=== PATIENT | female | born 1965 | race Hispanic/Latino ===

== ENCOUNTER 2017-02-22 05:51 | Emergency (ER) | payer MEDICAID ==
[2017-02-22 06:11] VITALS: BP 151/78
[2017-02-22] MEDS ORDERED: DIPHTH,PERTUSS(ACELL),TET VAC 0.5 ML VIAL IM ONE (06:26)
[2017-02-22] MEDS ORDERED: KETOROLAC TROMETHAMINE 60 MG/2 ML VIAL IM ONE (06:26)
[2017-02-22] MEDS: DIPHTH,PERTUSS(ACELL),TET VAC 0.5 ML VIAL IM ONE (06:29)
[2017-02-22] MEDS: KETOROLAC TROMETHAMINE 60 MG/2 ML VIAL IM ONE (06:30)
--- NOTE | 2017-02-22 06:37 | ERNOTE ---
Medical Problem HPI - General Chief Complaint: Laceration Time Seen by Provider: 02/22/17 06:20 Source: patient Exam Limitations: no limitations - Immun/Allergies/Home Medications Immunizations: IMMUNIZATION HX Immunizations Up to Date No: unknown History of Influenza Vaccine Yes Hx Pneumococcal Vaccination No Allergies/Adverse Reactions: Allergies morphine Allergy (Intermediate, Verified 04/18/15 11:16) Hives Home Medications: HOME MEDICATIONS Escitalopram Oxalate [Lexapro] 20 mg PO DAILY 11/16/14 [Last Taken Unknown] Levothyroxine Sodium [Synthroid] 50 mcg PO DAILY 03/31/15 [Last Taken Unknown] Bupropion HCl [Wellbutrin Xl] 300 mg PO DAILY 02/22/17 [Last Taken Unknown] Diazepam [Valium] 10 mg PO TID 02/22/17 [Last Taken Unknown] Montelukast Sodium [Singulair] 10 mg PO DAILY 02/22/17 [Last Taken Unknown] Omeprazole [Prilosec] 20 mg PO DAILY 02/22/17 [Last Taken Unknown] Pseudoephedrine HCl [Sudafed] 30 mg PO QID 02/22/17 [Last Taken Unknown] Sertraline HCl [Zoloft] 25 mg PO DAILY 02/22/17 [Last Taken Unknown] Topiramate [Topamax] 100 mg PO BID 02/22/17 [Last Taken Unknown] - History of Present History Narrative: Pt cut left hand with knife when trying to open a bottle this morning. She describes difficulty getting the bleeding to stop but hemostasis is complete upon arrival. Severity: mild Review of Systems - Review of Systems Constitutional: Absent: recent illness EYE: Present: no symptoms reported ENT: Present: no symptoms reported Respiratory: Present: no symptoms reported Cardiology: Absent: chest pain, palpitations Gastrointestinal/Abdominal: Present: no symptoms reported Genitourinary: Present: no symptoms reported Musculoskeletal: Present: See HPI, muscle pain. Absent: joint pain, joint swelling Skin: Present: See HPI Neurological: Absent: numbness, tingling Endocrine: Present: no symptoms reported Hematologic/Lymphatic: Present: no symptoms reported Psych: Present: no symptoms reported - Patient's Past Medical History Patient History - Medical: Anxiety, Depression, Hypothyroidism, Other Patient History - Cardiac/Respiratory: No pertinent hx Patient History - Cancer: No Hx of Cancer Patient History - Surgical Procedures: Other Patient History - Other: None - Family History Mother Family History - Medical: No pertinent hx Family History - Cardiac/Respiratory: No pertinent hx Father Family History - Medical: No pertinent hx Family History - Cardiac/Respiratory: No pertinent hx - Social History Living Situations: parents Abuse History: No History of abuse Psych History: Hx of Anxiety, Hx of Depression, Current tx/ever been on anti- depressants or anti-anxiety meds Smoking Status: Never smoker Have you smoked in the past 12 months: No Do you dip or chew tobacco: No Alcohol Use: none Drug Use: none - Immunizations Immunizations Up to Date: No - unknown Hx Pneumococcal Vaccination: No History of Influenza Vaccine: Yes Physical Exam - Physical Exam General Appearance: Present: wd/wn, alert, no apparent distress Respiratory: Present: no respiratory distress, no accessory muscle use Extremity Exam: Present: normal range of motion, no edema, other - tenderness to the muscle on the left dorsal hand between the 1st and 2nd metacarpals. Absent: bony tenderness, joint redness, joint swelling Neurological Exam: Present: alert, oriented, normal mood/affect, no motor/ sensory deficits Skin Exam: Present: normal color, warm/dry, other - 1 cm laceration on the left dorsal hand between the 1st and 2nd metacarpals Lymphatic Exam: Present: no adenopathy ED Progress - Vital Signs Vital Signs: Vital Signs 02/22/17 06:04 Temperature 36.0 C L Pulse Rate 74 Respiratory 18 Rate Blood Pressure 151/78 O2 Sat by Pulse 96 Oximetry - Progress/Reassessment Chief Complaint: Laceration Procedures Left Dorsal Hand Length of Repair/Wound (cm): 1 Wound's Depth/Shape: into subcutaneous, linear Wound Explored: clean Wound Intervention: irrigated w/saline Distal NVT: neuro/vasc intact, no tendon injury Wound Repaired With: Dermabond Estimated blood loss (ml): 0 Complications: Pt walter procedure well Departure Clinical Impression: Laceration - Departure Disposition: Home self-care Condition: Good Instructions: Tissue Adhesive Wound Care, [id number] Additional Instructions: You may take ibuprofen 600 mg three times a day as needed for pain. You may use ice 10 minutes at a time 3-4 times a day. Referrals: Jonathan Diggs MD [Primary Care Provider] -
== END 2017-02-22 06:38 | disposition home or self-care (01) ==
LOC: ER 05:51
PROC: 0JQK0ZZ Repair Left Hand Subcutaneous Tissue and Fascia, Open Approach (ICD-10-PCS; principal; 2017-02-22)
DX: S61.412A Laceration without foreign body of left hand, initial encounter (principal); W26.0XXA Contact with knife, initial encounter; Y93.89 Activity, other specified; Y92.009 Unspecified place in unspecified non-institutional (private) residence as the place of occurrence of the external cause; Z23 Encounter for immunization; E03.9 Hypothyroidism, unspecified; F41.8 Other specified anxiety disorders

== ENCOUNTER 2017-07-01 08:47 | Day surgery (SDC) | payer MEDICAID ==
[~2017-07-01 08:47] MED LIST: RINGER'S SOLUTION,LACTATED 1,000 ML IV PRN
[2017-07-01] MEDS ORDERED: RINGER'S SOLUTION,LACTATED 1,000 ML IV ONE (09:45)
[2017-07-01] MEDS ORDERED: RINGER'S SOLUTION,LACTATED 1,000 ML IV PRN (10:37)
[2017-07-01] MEDS ORDERED: ACETAMINOPHEN 500 MG TABLET PO ONE (10:42)
[2017-07-01 11:48] VITALS: BP 119/66
--- NOTE | 2017-07-01 18:43 | OR ---
Operative Report - Dictated Report Narrative: Operative Report Date of operation: 07/01/2017 Preoperative diagnosis: GERD symptoms despite medication, dysphagia, no prior dedicated colon studies Postoperative diagnosis: Hiatal hernia, gastropathy (CLOtest and pathology pending). Normal colonoscopy Operation: EGD with biopsies. Colonoscopy Surgeon: Dr Partida Anesthesia: KEI GARLAND CRNA Indications for procedure: The patient is a 52-year-old female referred by Dr. Diggs. The patient has difficulty swallowing with a pressure feeling and GERD symptoms despite medication. She has had no previous dedicated colon studies. There is no family history of colon cancer. The patient has a tendency to constipation Findings: Hiatal hernia, gastropathy (pathology and CLOtest pending). Capacious, redundant colon otherwise normal exam to the cecum. Narrative of procedure: The patient was identified preoperatively, and prior to the administration of anesthetic a multidisciplinary timeout was observed EGD: With the patient in the recumbent position, a bite-block was placed, intravenous sedation was administered, and the patient's eyes covered with a towel. The flexible fiberoptic gastroscope was advanced into the posterior pharynx which appeared normal. The supraglottic larynx appeared normal. The cords appeared normal, moved well, and opposed in the midline. The scope was advanced under direct vision into the proximal esophagus which appeared normal. The esophagus appeared freely distensible with normal mucosa. The esophageal mucosa appeared normal down to the gastroesophageal junction which was sharp and noninflamed. The GE junction appeared normally distensible. There was a small sliding hiatal hernia. The scope was advanced into the stomach proper which was insufflated with air. It was mild and gastric erythema but no neelam ulcerations or neoplastic lesions were appreciated including a retroflexed view of the gastric fundus, which also demonstrated the hiatal hernia. Scope was redirected toward the pylorus. The pylorus appeared patent. The scope was advanced into the duodenal bulb which appeared normal. The scope was advanced further to the horizontal portion of the duodenum which appeared normal, specifically the villous architecture appeared well preserved and clear bile was present. The scope was slowly withdrawn through the duodenal bulb with confirmation that no active ulcer was present. The scope was withdrawn into the stomach and circulation sales representative biopsies of gastric mucosa obtained for CLOtest and pathology. The biopsy sites were seen to be hemostatic. The insufflated air was removed, the scope withdrawn from the patient, and this portion of the procedure terminated. COLONOSCOPY: The patient was then placed in the left lateral position, and the perineum was inspected. There was no evidence of pilonidal disease or skin breakdown. The external appearance of the anus was normal. Sphincter tone was good. The flexible fiberoptic colonoscope was inserted into the rectum which was insufflated with air. The rectal mucosa and submucosal vascular pattern appeared normal, the prep was seen to be complete. The scope was advanced through the sigmoid colon, up the descending colon, and around the splenic flexure where the triangular haustral architecture of the transverse colon was seen. The scope was advanced across the transverse colon, around the hepatic flexure to the cecum, where the confluence of tenia and the ileocecal valve were identified. The mucosa at this level appeared normal. The scope was then slowly withdrawn in a circular fashion so that all aspects of colonic mucosa were inspected. The colon was very capacious in character and slightly redundant in course. The haustral architecture appeared well preserved throughout with no evidence of external compression. The mucosa and submucosal vascular pattern appeared normal, specifically there was no gross evidence to suggest colitis or inflammatory bowel disease and no AV malformations were seen. No neelam diverticulosis was demonstrated. No polyps were encountered. The scope was gradually withdrawn to the level of the rectum. As much insufflated air as possible was removed. The scope was withdrawn from the patient and the procedure terminated. The patient tolerated the anesthetic and procedure well without complication and was transferred back to the ambulatory surgery area awake and in stable condition. The patient remained stable throughout a period of postoperative observation. She denied abdominal discomfort, was able to tolerate by mouth intake, and was up without assistance. I shared the operative findings with the patient and she was given copies of the photographs which appear in the medical record. She was discharged home with instructions not to engage in hazardous activity today , but may resume normal activity tomorrow, and advance diet as tolerated. She is to continue those medications as listed in the history and physical exam. I made arrangements to contact her with the biopsy reports and will make additional recommendations for treatment and follow-up based upon those results. Reviewed and electronically signed
== END 2017-07-01 08:48 | disposition home or self-care (01) ==
LOC: AMB 08:47
PROVIDERS: ATTEND Surgery
PROC: 0DB68ZX Excision of Stomach, Via Natural or Artificial Opening Endoscopic, Diagnostic (ICD-10-PCS; principal; 2017-07-01)
PROC: 0DJD8ZZ Inspection of Lower Intestinal Tract, Via Natural or Artificial Opening Endoscopic (ICD-10-PCS; 2017-07-01)
DX: Z12.11 Encounter for screening for malignant neoplasm of colon; F32.9 Major depressive disorder, single episode, unspecified; D64.9 Anemia, unspecified; E03.9 Hypothyroidism, unspecified; K29.70 Gastritis, unspecified, without bleeding; K21.9 Gastro-esophageal reflux disease without esophagitis; F41.1 Generalized anxiety disorder; Z68.38 Body mass index [BMI] 38.0-38.9, adult; K44.9 Diaphragmatic hernia without obstruction or gangrene
CPT/HCPCS: 43239; 87081; G0121